=== PATIENT | male | born 1960 ===

== ENCOUNTER 2017-06-24 13:43 | Emergency (ER) | payer BC, OTHER ==
[2017-06-24 13:58] VITALS: BP 152/47; RESP 18; TEMP 96.9; O2SAT 98
--- NOTE | 2017-06-24 14:59 | ED PDOC ---
HPI: General Adult Time Seen by Provider: 06/24/17 14:05 Chief Complaint (Nursing): Rib Injury Chief Complaint (Provider): Rib Pain, Back pain History Per: Patient History/Exam Limitations: no limitations Onset/Duration Of Symptoms: Days (x 4) Current Symptoms Are (Timing): Still Present Additional Complaint(s): Jp is a 57 y/o male with a past medical history of diabetes, chronic back pain, hypertension, and hypercholesterolemia, who presents to the ED complaining of bilateral rib pain and bilateral mid back pain, which began after waking up this past Friday. 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 He notes repetitive twisting motion of his trunk doing this job. Denies associated chest pain, shortness of breath, abdominal pain, or changes in appetite. He usually takes Motrin for his back pain but reports Motrin has not provided any relief for this pain. Last took Motrin this morning. Pain worsens with movement, and specifically his back hurts most when moving from lying to sitting position. PMD: [facility] Past Medical History Reviewed: Historical Data, Nursing Documentation, Vital Signs Vital Signs: Last Vital Signs Temp 96.9 F L 06/24/17 13:56 Pulse 64 06/24/17 17:31 Resp 18 06/24/17 13:56 BP 152/47 H 06/24/17 13:56 Pulse Ox 98 06/24/17 17:31 - Medical History PMH: Diabetes, HTN, Hypercholesterolemia, Chronic Pain (back) - Surgical History Surgical History: Denies: CABG - Family History Family History: States: Unknown Family Hx - Social History Current smoker - smoking cessation education provided: Yes Alcohol: Social Drugs: Denies - Home Medications Home Medications: Ambulatory Orders Medication Instructions Recorded Diazepam [Valium] 2 mg PO BID PRN #10 tab 01/11/15 MetFORMIN [glucoPHAGE] 1,000 PO BID 01/11/15 oxyCODONE/Acetaminophen [Percocet 1 ea PO BID PRN #8 tab 01/11/15 5/325 mg Tab] Naproxen [Naprosyn] 500 mg PO BID PRN #30 tab 09/15/15 Cyclobenzaprine [Cyclobenzaprine 5 mg PO TID #15 tab 06/24/17 HCl] Naproxen [Naprosyn] 500 mg PO BID PRN #20 tablet 06/24/17 - Allergies Allergies/Adverse Reactions: Allergies Allergy/AdvReac Type Severity Reaction Status Date / Time No Known Allergies Allergy Verified 01/11/15 08:25 Review of Systems ROS Statement: Except As Marked, All Systems Reviewed And Found Negative Cardiovascular: Negative for: Chest Pain Respiratory: Negative for: Shortness of Breath Gastrointestinal: Negative for: Abdominal Pain, Other (change in appetite) Genitourinary Male: Negative for: Dysuria, Hematuria Musculoskeletal: Positive for: Other (Rib pain, bilateral, anterior and posterior; mid back pain) Physical Exam - Reviewed Nursing Documentation Reviewed: Yes Vital Signs Reviewed: Yes - Physical Exam Appears: Positive for: Non-toxic, No Acute Distress Head Exam: Positive for: ATRAUMATIC, NORMAL INSPECTION, NORMOCEPHALIC Skin: Positive for: Normal Color, Warm, Dry Eye Exam: Positive for: EOMI, Normal appearance, PERRL Neck: Positive for: Normal, Supple Cardiovascular/Chest: Positive for: Regular Rate, Rhythm, Chest Non Tender, Other (Anteriorly tender over bilateral rib cage at ribs 8, 9, & 10. No upper rib cage tenderness). Negative for: Murmur Respiratory: Positive for: Normal Breath Sounds. Negative for: Accessory Muscle Use, Respiratory Distress Gastrointestinal/Abdominal: Positive for: Normal Exam, Soft. Negative for: Tenderness Back: Positive for: Normal Inspection, Other (Tender to bilateral parathoracic muscles. Tender over posterior rib cage, at ribs 9-12. (+)bilateral CVA tenderness). Negative for: Vertebral Tenderness Extremity: Positive for: Normal ROM, Other (Anteriorly tender over bilateral rib cage at ribs 8, 9, & 10. No upper rib cage tenderness). Negative for: Deformity Neurologic/Psych: Positive for: Alert, Oriented (x 3) - ECG ECG: Positive for: Interpreted By Me, Viewed By Me ECG Rhythm: Positive for: Sinus Rhythm. Negative for: ST/T Changes (or elevation) Rate: 64 O2 Sat by Pulse Oximetry: 98 (RA) Pulse Ox Interpretation: Normal Medical Decision Making Medical Decision Making: Time: 15:17 Initial Plan: --EKG --Chest X-Ray --urinalysis --Flexeril 10 mg PO --Toradol 30 mg IM --Pending reevaluation Patient with some persistence of pain on reevaluation. UA results reviewed. CT scan ordered. FSBS: 132. CHEST X-RAY Creator : Obi Whiting MD Dictator : Obi Whiting MD Balloon Pilot : Correctional Probation Officer : Obi Whiting MD Approver2 : Report Date : 06/24/2017 15:47:09 My Comment : HISTORY: pain COMPARISON: Chest radiograph dated 05/08/2010. TECHNIQUE: Chest PA and lateral FINDINGS: LUNGS: No active pulmonary disease. PLEURA: No significant pleural effusion identified. No pneumothorax apparent. CARDIOVASCULAR: Normal. OSSEOUS STRUCTURES: No significant abnormalities. VISUALIZED UPPER ABDOMEN: Normal. OTHER FINDINGS: None. IMPRESSION: No active disease. Time: 16:18 Labs reviewed, urine significant for RBC. Will order CT Abd/Pelvis to r/o kidney stone. CT ABDOMEN/PELVIS W/O CONTRAST: Report Date : 06/24/2017 16:51:43 My Comment : PROCEDURE: CT Abdomen and Pelvis without intravenous contrast HISTORY: back pain, hematuria COMPARISON: None. TECHNIQUE: Without contrast. Radiation dose: Total exam DLP = 683 mGy-cm. This CT exam was performed using one or more of the following dose reduction techniques: Automated exposure control, adjustment of the mA and/or kV according to patient size, and/or use of iterative reconstruction technique. FINDINGS: LOWER THORAX: Bibasilar dependent atelectasis. No focal consolidation or pleural effusion. Heart normal in size. LIVER: Unremarkable. No gross lesion or ductal dilatation. GALLBLADDER AND BILE DUCTS: Unremarkable. PANCREAS: Unremarkable. No gross lesion or ductal dilatation. SPLEEN: Unremarkable. ADRENALS: Unremarkable. No mass. KIDNEYS AND URETERS: Unremarkable. No hydronephrosis. No solid mass. VASCULATURE: Unremarkable. No aortic aneurysm. BOWEL: Unremarkable. No obstruction. No gross mural thickening. APPENDIX: Unremarkable. Normal appendix. PERITONEUM: Unremarkable. No free fluid. No free air. LYMPH NODES: Unremarkable. No enlarged lymph nodes. BLADDER: Unremarkable. REPRODUCTIVE: Unremarkable. BONES: No acute fracture. OTHER FINDINGS: L5-S1 disc bulge. Cystic structure in the right rectus femoris muscle (series 3 , image 151). IMPRESSION: Unremarkable non contrast enhanced CT of the abdomen and pelvis. Nonspecific cystic structure in the right rectus femoris muscle at the level of the femoral neck. Contrast-enhanced MRI can be obtained for further evaluation as clinically warranted. Findings conveyed to Rae Zamora by Dr. Larios at 4:50 p.m. on 06/24/2017. CT results discussed with Dr. Larios, who advises nonemergent MRI with IV contrast of rectus femoris muscle. Patient advised and expresses understanding and agreement. In light of negative findings, patient cleared for d/c. Symptoms likely secondary muscle strain. He was advised to f/u with PMD/Clinic , and return to the ED for any worsening or change in symptoms. Scribe Attestation: Documented by Bel Hoff, acting as a scribe for Rae Zamora PA-C Provider Scribe Attestation: All medical record entries made by the Scribe were at my direction and personally dictated by me. I have reviewed the chart and agree that the record accurately reflects my personal performance of the history, physical exam, medical decision making, and the department course for this patient. I have also personally directed, reviewed, and agree with the discharge instructions and disposition. Disposition - Clinical Impression Clinical Impression: Back pain, Rib pain, Muscle strain - Patient ED Disposition Is Patient to be Admitted: No Counseled Patient/Family Regarding: Studies Performed, Diagnosis, Need For Followup, Rx Given - Disposition Referrals: [facility] [Outside] Disposition: Routine/Home Disposition Time: 17:31 Condition: STABLE Additional Instructions: Take medication as prescribed, rest, and avoid strenuous activity. F/u with PMD /Clinic, and return with any worsening or change in symptoms. Get MRI as advised. Prescriptions: Cyclobenzaprine [Cyclobenzaprine HCl] 5 mg PO TID #15 tab Naproxen [Naprosyn] 500 mg PO BID PRN #20 tablet PRN Reason: Pain, Moderate (4-7) Instructions: Muscle Strain (ED), Musculoskeletal Pain (ED), Back Pain (ED) Forms: [employer] [facility] (Stateless), [facility] School/Work Excuse Print Language: CANADIAN
[2017-06-24 15:41] VITALS: PULSE 64
[2017-06-24 15:47] LABS: RBC URINE 4 /hpf (0-3); URINE BILIRUBIN NEGATIVE (NEGATIVE); URINE BLOOD NEGATIVE (NEGATIVE); URINE COLOR YELLOW (YELLOW); URINE GLUCOSE (UA) 50 mg/dL (Normal); URINE KETONE NEGATIVE (NEGATIVE); URINE LEUKOCYTE ESTERASE NEG Leu/uL (Negative); URINE PROTEIN 30 mg/dL (NEGATIVE); URINE UROBILINOGEN 0.2-1.0 mg/dL (0.2-1.0); WBC URINE 1 /hpf (0-5)
--- NOTE | 2017-06-24 15:48 | RAD ---
HISTORY: pain COMPARISON: Chest radiograph dated 05/08/2010. TECHNIQUE: Chest PA and lateral FINDINGS: LUNGS: No active pulmonary disease. PLEURA: No significant pleural effusion identified. No pneumothorax apparent. CARDIOVASCULAR: Normal. OSSEOUS STRUCTURES: No significant abnormalities. VISUALIZED UPPER ABDOMEN: Normal. OTHER FINDINGS: None. IMPRESSION: No active disease.
--- NOTE | 2017-06-24 16:53 | CT ---
PROCEDURE: CT Abdomen and Pelvis without intravenous contrast HISTORY: back pain, hematuria COMPARISON: None. TECHNIQUE: Without contrast. Radiation dose: Total exam DLP = 683 mGy-cm. This CT exam was performed using one or more of the following dose reduction techniques: Automated exposure control, adjustment of the mA and/or kV according to patient size, and/or use of iterative reconstruction technique. FINDINGS: LOWER THORAX: Bibasilar dependent atelectasis. No focal consolidation or pleural effusion. Heart normal in size. LIVER: Unremarkable. No gross lesion or ductal dilatation. GALLBLADDER AND BILE DUCTS: Unremarkable. PANCREAS: Unremarkable. No gross lesion or ductal dilatation. SPLEEN: Unremarkable. ADRENALS: Unremarkable. No mass. KIDNEYS AND URETERS: Unremarkable. No hydronephrosis. No solid mass. VASCULATURE: Unremarkable. No aortic aneurysm. BOWEL: Unremarkable. No obstruction. No gross mural thickening. APPENDIX: Unremarkable. Normal appendix. PERITONEUM: Unremarkable. No free fluid. No free air. LYMPH NODES: Unremarkable. No enlarged lymph nodes. BLADDER: Unremarkable. REPRODUCTIVE: Unremarkable. BONES: No acute fracture. OTHER FINDINGS: L5-S1 disc bulge. Cystic structure in the right rectus femoris muscle (series 3, image 151). IMPRESSION: Unremarkable non contrast enhanced CT of the abdomen and pelvis. Nonspecific cystic structure in the right rectus femoris muscle at the level of the femoral neck. Contrast-enhanced MRI can be obtained for further evaluation as clinically warranted. Findings conveyed to Rae Zamora by Dr. Larios at 4:50 p.m. on 06/24/2017.
--- NOTE | 2017-06-25 07:46 | CARD ---
APPROVED REPORT EKG Measurement Heart [id number] <Conclusion> Normal sinus rhythm Septal infarct, age undetermined Abnormal ECG
== END 2017-06-24 17:42 | disposition home or self-care (01) ==
LOC: H.ER 13:43
DX: M54.9 Dorsalgia, unspecified (principal); R07.82 Intercostal pain; E11.9 Type 2 diabetes mellitus without complications; E78.00 Pure hypercholesterolemia, unspecified; G89.29 Other chronic pain; I10 Essential (primary) hypertension; Z79.84 Long term (current) use of oral hypoglycemic drugs
CPT/HCPCS: 71020; 74176; 81003; 82948; 93005; 96372; 99283; J1885

== ENCOUNTER 2018-06-02 16:47 | Emergency (ER) | payer OTHER ==
[2018-06-02 16:55] VITALS: TEMP 98.1
--- NOTE | 2018-06-02 17:27 | ED PDOC ---
Lower Extremity Pain/Injury Time Seen by Provider: 06/02/18 16:56 Chief Complaint (Nursing): Lower Extremity Problem/Injury Chief Complaint (Provider): Lower Extremity Problem/Injury History Per: Patient History/Exam Limitations: no limitations Onset/Duration Of Symptoms: Days (x1 day ago) Current Symptoms Are (Timing): Still Present Additional Complaint(s): Patient reports injuring his right knee when he was walking yesterday. He states he thought there was a ramp but there wasn't one, causing him to fall forward and land on his right knee, striking it against the concrete. Pain is said to be worsening with movement and ambulation. Patient took no medications prior to arrival. No other complaints. Otherwise: (-) numbness, (-) head injury, (-) loss of consciousness. PMD: [facility] - Knee Description Of Injury: Fell Past Medical History Reviewed: Historical Data, Nursing Documentation, Vital Signs Vital Signs: Last Vital Signs Temp 98.1 F 06/02/18 16:53 Pulse 80 06/02/18 16:53 Resp 17 06/02/18 16:53 BP 158/77 H 06/02/18 16:53 Pulse Ox 100 06/02/18 16:53 - Medical History PMH: Diabetes (type 1), HTN, Hypercholesterolemia, Chronic Pain (back) - Surgical History Other surgeries: right knee cartilage repair x10 years ago - Family History Family History: States: Unknown Family Hx - Home Medications Home Medications: Ambulatory Orders Medication Instructions Recorded Diazepam [Valium] 2 mg PO BID PRN #10 tab 01/11/15 RX: MetFORMIN [glucoPHAGE] 1,000 PO BID 01/11/15 oxyCODONE/Acetaminophen [Percocet 1 ea PO BID PRN #8 tab 01/11/15 5/325 mg Tab] RX: Naproxen [Naprosyn] 500 mg PO BID PRN #30 tab 09/15/15 Cyclobenzaprine [Cyclobenzaprine 5 mg PO TID #15 tab 06/24/17 HCl] Naproxen [Naprosyn] 500 mg PO BID PRN #20 tablet 06/24/17 Acetaminophen [Acetaminophen 8 650 mg PO Q8 PRN #21 tablet.er 06/02/18 Hour] Meloxicam [Mobic] 15 mg PO DAILY PRN #10 tab 06/02/18 - Allergies Allergies/Adverse Reactions: Allergies Allergy/AdvReac Type Severity Reaction Status Date / Time No Known Allergies Allergy Verified 06/02/18 16:52 Review of Systems ROS Statement: Except As Marked, All Systems Reviewed And Found Negative Musculoskeletal: Positive for: Other (right knee pain) Neurological: Negative for: Other (no loss of consciousness) Physical Exam - Reviewed Nursing Documentation Reviewed: Yes Vital Signs Reviewed: Yes - Physical Exam Comments: GENERAL APPEARANCE: Patient is awake, alert, oriented x 3, in no acute distress, resting comfortably. SKIN: Warm, dry; (-) cyanosis. CHEST AND RESPIRATORY: (-) rales, (-) rhonchi, (-) wheezes; breath sounds equal bilaterally. HEART AND CARDIOVASCULAR: (-) irregularity NECK: Supple, FROM ENT: Airway patent (-) stridor. Right knee: (+) tenderness to the medial aspect of the right knee, (-) effusion, (-) ecchymosis, (-)warmth, (-) erythema, (-) crepitus, (+) decreased flexion secondary to pain otherwise ROM intact; no instability on valgus or varus stress (-) anterior or posterior drawer sign. Remainder of lower extremity nontender with FROM. (-) calf tenderness. Sensation and pulses present; Strength 5/5 to lower extremities NEURO AND PSYCH: Mental status as above. Gait: steady. Speech: clear. (-) facial asymmetry - ECG O2 Sat by Pulse Oximetry: 100 (RA) Pulse Ox Interpretation: Normal Medical Decision Making Medical Decision Making: Initial Time: 17:00 Initial Impression: Acute knee pain status post fall Initial Plan: --Right knee X-ray --Toradol 30 mg IM --Re-evaluation 1809 XR reviewed, radiology report follows Date of service: 06/02/2018 PROCEDURE: Right Knee Radiographs. HISTORY: joint pain s/p fall COMPARISON: Right knee radiographs dated 09/15/2015 FINDINGS: BONES: No acute fracture. JOINTS: Mild tricompartmental narrowing. Chondrocalcinosis redemonstrated within the tibial femoral compartment. JOINT EFFUSION: None. OTHER FINDINGS: None. IMPRESSION: No demonstrated fracture or dislocation. Mild degenerative changes. Repeat BP: 140/78 John bandage ordered and applied by ED RN. NV intact after placement. Patient declined crutches at this time. RICE encouraged. On re-evaluation, patient reports improvement of symptoms. On exam, patient remains AAOx3, in no acute distress. Lungs clear to auscultation, cardiac RRR,repeat neuro exam shows no focal findings. Vitals stable. Lab/Diagnostic results d/w the patient in great detail. Diagnosis of acute knee pain d/w the patient. Based on history, exam and diagnostic results, plan will be for outpatient follow up with [facility] or Ortho. Patient instructed to follow-up with pmd / referral provided / the clinic in 1- 2 days without fail. Advised to take medication as prescribed. Return to the emergency room at any time for any new or worsening symptoms. Patient states he fully agrees with and understands discharge instructions. States that he agrees with the plan and disposition. Verbalized and repeated discharge instructions and plan. I have given the patient opportunity to ask any additional questions. Scribe Attestation: Documented by Abhi Navas, acting as a scribe for Carly Paulson. Provider Scribe Attestation: All medical record entries made by the Scribe were at my direction and personally dictated by me. I have reviewed the chart and agree that the record accurately reflects my personal performance of the history, physical exam, medical decision making, and the department course for this patient. I have also personally directed, reviewed, and agree with the discharge instructions and disposition. Disposition - Clinical Impression Clinical Impression: Knee pain, Knee sprain - Patient ED Disposition Is Patient to be Admitted: No Counseled Patient/Family Regarding: Studies Performed, Diagnosis, Need For Followup, Rx Given - Disposition Referrals: Abdoul Burns III, MD [Staff Provider] - [facility] [Provider Group] Disposition: Routine/Home Disposition Time: 18:15 Condition: STABLE Additional Instructions: The emergency medical care you received today was directed at your acute symptoms. If you were prescribed any medication, please fill it and take as directed. It may take several days for your symptoms to resolve. Return to the Emergency Department if your symptoms worsen, do not improve, or if you have any other problems. Please contact your doctor in 2 days for re-evaluation and follow up / or call one of the physicians/clinics you have been referred to that are listed on the Patient Visit Information form that is included in your discharge packet. Bring any paperwork you were given at discharge with you along with any medications you are taking to your follow up visit. Our treatment cannot replace ongoing medical care by a primary care provider (PCP) outside of the emergency department. Prescriptions: Acetaminophen [Acetaminophen 8 Hour] 650 mg PO Q8 PRN #21 tablet.er PRN Reason: Pain, Moderate (4-7) Meloxicam [Mobic] 15 mg PO DAILY PRN #10 tab PRN Reason: Pain, Moderate (4-7) Instructions: Knee Sprain (DC), Knee Pain (DC) Forms: [facility] (Kittitian), [facility] School/Work Excuse Print Language: KINYARWANDA - POA Present On Arrival: None
--- NOTE | 2018-06-02 17:52 | RAD ---
Date of service: 06/02/2018 PROCEDURE: Right Knee Radiographs. HISTORY: joint pain s/p fall COMPARISON: Right knee radiographs dated 09/15/2015 FINDINGS: BONES: No acute fracture. JOINTS: Mild tricompartmental narrowing. Chondrocalcinosis redemonstrated within the tibial femoral compartment. JOINT EFFUSION: None. OTHER FINDINGS: None. IMPRESSION: No demonstrated fracture or dislocation. Mild degenerative changes.
[2018-06-02 18:35] VITALS: BP 140/78; PULSE 72; RESP 18
[2018-06-03 23:05] VITALS: O2SAT 100
== END 2018-06-02 18:27 | disposition home or self-care (01) ==
LOC: H.ER 16:47
DX: S83.91XA Sprain of unspecified site of right knee, initial encounter (principal); X50.9XXA Other and unspecified overexertion or strenuous movements or postures, initial encounter; Y92.89 Other specified places as the place of occurrence of the external cause
CPT/HCPCS: 73562; 96372; 99284; J1885